=== PATIENT | female | born 1965 | race Caucasian/White ===

== ENCOUNTER 2024-11-09 09:52 | Inpatient (IN) | payer BC ==
[2024-11-09] MEDS ORDERED: Sodium Chloride 0.9% 10 ML Syringe FLUSH PRN ×2 (10:10→13:37)
[2024-11-09] MEDS ORDERED: Sodium Chloride 0.9% 2.5 ML Syringe FLUSH PRN ×2 (10:10→13:37)
[2024-11-09 10:28] LABS: HEMATOCRIT 50.9 % (37.0-47.0); HEMOGLOBIN 17.2 g/dL (12.0-16.0); MEAN CORPUSCULAR HEMOGLOBIN 28.2 pg (28.0-32.0); MEAN CORPUSCULAR HGB CONC 33.8 g/dL (32.0-36.0); MEAN CORPUSCULAR VOLUME 83.3 fL (83.0-99.0); MEAN PLATELET VOLUME 10.3 fL (9.4-12.3); PLATELET COUNT,PLT 370 K/uL (150-400); RED BLOOD CELL COUNT 6.11 M/uL (4.10-5.30); WHITE BLOOD CELL COUNT,WBC 18.79 K/uL (3.9-11.3)
[2024-11-09 10:40] LABS: INR 1.27 (0.86-1.11)
[2024-11-09 11:08] LABS: A/G RATIO 0.5 (0.9-1.6); ALBUMIN 2.5 g/dL (3.4-5.0); BILIRUBIN TOTAL 0.9 mg/dL (0.2-1.0); CALCIUM 10.6 mg/dL (8.5-10.1); CARBON DIOXIDE,CO2 19.4 mmol/L (21.0-32.0); CREATININE 1.4 mg/dL (0.6-1.0); EST CRCL DRUG DOSING (CG) 34.22 mL/min; POTASSIUM,K 4.4 mmol/L (3.5-5.1); PROTEIN TOTAL,TP 7.8 g/dL (6.4-8.2); TSH ULTRASENSITIVE 0.73 uIU/mL (0.36-3.74)
[2024-11-09 11:32] LABS: BAND PERCENT MAN 8 %; LYMPHOCYTES ABSOLUTE MAN 2.82 K/uL (1.00-4.80); LYMPHOCYTES PERCENT MAN 15 % (24-44); MONOCYTES ABSOLUTE MAN 1.69 K/uL (0.00-0.80); MONOCYTES PERCENT MAN 9 % (0-8); SEG NEUTROPHILS ABSOLUTE MAN 12.78 K/uL (1.80-7.70); SEG NEUTROPHILS PERCENT MAN 68 % (41-71)
[2024-11-09] MEDS: Diltiazem 25 MG/5 ML SDV IVPUSH ONE (11:41)
[2024-11-09] MEDS: Diltiazem 100 MG in Sodium Chloride 0.9% 100 ML IV SCH ×2 (11:41→19:11)
[2024-11-09 12:07] LABS: LACTIC ACID 1.6 mmol/L (0.4-2.0)
[2024-11-09] MEDS: cefTRIAXone 2 GM in Sodium Chloride 0.9% 50 ML IV ONE (12:10)
[2024-11-09] MEDS: Furosemide 40 MG/4 ML VIAL IVPUSH ONE (12:33)
[2024-11-09] MEDS: Sodium Chloride 0.9% 500 ML IV SCH (12:34)
[2024-11-09] MEDS: Azithromycin 500 MG in Sodium Chloride 0.9% 250 ML IV ONE (12:34)
[2024-11-09] MEDS ORDERED: Acetaminophen 325 MG Tab PO PRN (13:37)
[2024-11-09] MEDS ORDERED: Ondansetron 4 MG/2 ML SDV IVPUSH PRN (13:37)
[2024-11-09] MEDS ORDERED: Glucagon,Human Recombinant 1 MG Vial IM PRN (14:19)
[2024-11-09] MEDS ORDERED: 50% Dextrose in Water 50 ML Syringe IVPUSH PRN (14:19)
[2024-11-09] MEDS: Metoprolol Tartrate 50 MG Tab PO SCH (15:48)
[2024-11-09] MEDS: Sodium Chloride 0.9% 1,000 ML IV ONE (15:49)
[2024-11-09] MEDS ORDERED: Albuterol 8 GM Inhaler INH PRN (16:02)
[2024-11-09 16:15] LABS: CORONAVIRUS COVID-19 NAA NEGATIVE (NEGATIVE); INFLUENZA A NAA NEGATIVE (NEGATIVE); INFLUENZA B NAA NEGATIVE (NEGATIVE)
[2024-11-09] MEDS: Insulin Aspart 100 Units/ML 3 ML Pen SUBCUT SCH (17:06)
[2024-11-09 17:57] LABS: COLOR,URINE YELLOW
[2024-11-09 17:58] LABS: APPEARANCE,URINE HAZY; BILIRUBIN,URINE NEGATIVE (NEGATIVE); GLUCOSE,URINE 1000 mg/dL (NEGATIVE); KETONES,URINE LARGE mg/dL (NEGATIVE); LEUKOCYTE ESTERASE,URINE NEGATIVE (NEGATIVE); NITRITE,URINE NEGATIVE (NEGATIVE); OCCULT BLOOD,URINE NEGATIVE (NEGATIVE); PROTEIN,URINE NEGATIVE (NEGATIVE); UROBILINOGEN,URINE <2.0 EU/dL (<2.0)
[2024-11-09 18:05] LABS: BACTERIA,URINE RARE (NEGATIVE); EPITHELIAL CELLS,URINE NOT SEEN (NONE-FEW); MUCUS,URINE NOT SEEN (NONE-MOD); RBC,URINE 0-1 (0-2/HPF); WBC,URINE 0-1 (0-5/HPF)
[2024-11-09] MEDS: DULoxetine 60 MG Cap PO SCH (20:10)
[2024-11-09] MEDS: Sodium Chloride 0.9% 100 ML ONE (20:10)
[2024-11-09] MEDS: Rosuvastatin 10 MG Tab PO SCH (20:10)
[2024-11-09] MEDS: Aspirin 325 MG Tab PO SCH (20:12)
[2024-11-09] MEDS: Apixaban 5 MG Tab PO SCH (20:12)
[2024-11-09] MEDS: Fenofibrate,Micronized 67 MG Cap PO SCH (20:36)
[2024-11-10 06:52] LABS: HEMATOCRIT 50.5 % (37.0-47.0); HEMOGLOBIN 17.1 g/dL (12.0-16.0); MEAN CORPUSCULAR HEMOGLOBIN 28.2 pg (28.0-32.0); MEAN CORPUSCULAR HGB CONC 33.9 g/dL (32.0-36.0); MEAN CORPUSCULAR VOLUME 83.3 fL (83.0-99.0); PLATELET COUNT,PLT 335 K/uL (150-400); RED BLOOD CELL COUNT 6.06 M/uL (4.10-5.30); WHITE BLOOD CELL COUNT,WBC 18.17 K/uL (3.9-11.3)
[2024-11-10 07:10] LABS: CALCIUM 9.6 mg/dL (8.5-10.1); CARBON DIOXIDE,CO2 22.2 mmol/L (21.0-32.0); CREATININE 1.3 mg/dL (0.6-1.0); EST CRCL DRUG DOSING (CG) 36.53 mL/min; MAGNESIUM 1.8 mg/dL (1.8-2.4); POTASSIUM,K 3.9 mmol/L (3.5-5.1)
[2024-11-10 07:40] LABS: BAND ABSOLUTE MAN 1.82; BAND PERCENT MAN 10 %; EOSINOPHILS ABSOLUTE MAN 0.18 K/uL (0.00-0.45); EOSINOPHILS PERCENT MAN 1 % (0-6); LYMPHOCYTES PERCENT MAN 11 % (24-44); METAMYELOCYTE ABSOLUTE MAN 0.36; METAMYELOCYTE PERCENT MAN 2 %; MONOCYTES ABSOLUTE MAN 1.64 K/uL (0.00-0.80); MONOCYTES PERCENT MAN 9 % (0-8); MYELOCYTE ABSOLUTE MAN 0.36; MYELOCYTE PERCENT MAN 2 %; SEG NEUTROPHILS ABSOLUTE MAN 11.81 K/uL (1.80-7.70); SEG NEUTROPHILS PERCENT MAN 65 % (41-71)
[2024-11-10] MEDS: cefTRIAXone 2 GM in Sodium Chloride 0.9% 50 ML IV SCH (10:58)
[2024-11-10] MEDS: Sodium Chloride 0.9% 1,000 ML IV ONE (10:58)
[2024-11-10] MEDS: Azithromycin 500 MG in Sodium Chloride 0.9% 250 ML IV SCH (11:49)
[2024-11-10] MEDS: Magnesium Sulfate/Water Premix 2 GM in Premix Bag 1 BAG IV ONE (11:49)
[2024-11-10] MEDS: Potassium Chloride 20 MEQ Tab.ER PO ONE (11:49)
[2024-11-10] MEDS: DAPAGLIFLOZIN 10 MG PO SCH (12:00)
[2024-11-11 07:04] LABS: HEMATOCRIT 47.3 % (37.0-47.0); HEMOGLOBIN 16.1 g/dL (12.0-16.0); MEAN CORPUSCULAR HEMOGLOBIN 28.4 pg (28.0-32.0); MEAN CORPUSCULAR VOLUME 83.6 fL (83.0-99.0); PLATELET COUNT,PLT 258 K/uL (150-400); RED BLOOD CELL COUNT 5.66 M/uL (4.10-5.30)
[2024-11-11 07:29] LABS: CALCIUM 9.4 mg/dL (8.5-10.1); CARBON DIOXIDE,CO2 21.5 mmol/L (21.0-32.0); CREATININE 1.2 mg/dL (0.6-1.0); EST CRCL DRUG DOSING (CG) 39.58 mL/min; MAGNESIUM 1.9 mg/dL (1.8-2.4); POTASSIUM,K 4.3 mmol/L (3.5-5.1)
[2024-11-11 08:19] LABS: SEG NEUTROPHILS ABSOLUTE MAN 7.61 K/uL (1.80-7.70); SEG NEUTROPHILS PERCENT MAN 59 % (41-71)
[2024-11-11 08:20] LABS: BAND ABSOLUTE MAN 0.77; BAND PERCENT MAN 6 %; BLAST ABSOLUTE MAN 0.13; BLASTS PERCENT MAN 1 %; LYMPHOCYTES ABSOLUTE MAN 2.06 K/uL (1.00-4.80); LYMPHOCYTES PERCENT MAN 16 % (24-44); METAMYELOCYTE ABSOLUTE MAN 0.52; METAMYELOCYTE PERCENT MAN 4 %; MONOCYTES ABSOLUTE MAN 1.29 K/uL (0.00-0.80); MONOCYTES PERCENT MAN 10 % (0-8); MYELOCYTE ABSOLUTE MAN 0.52; MYELOCYTE PERCENT MAN 4 %
[2024-11-11] MEDS: Magnesium Sulfate/Water Premix 2 GM in Premix Bag 1 BAG IV ONE (09:50)
[2024-11-11] MEDS: Metoprolol Tartrate 25 MG Tab PO ONE (10:58)
[2024-11-11] MEDS ORDERED: Insulin Aspart 100 Units/ML 3 ML Pen SUBCUT SCH (11:30)
[2024-11-11] MEDS: Insulin Aspart 100 Units/ML 3 ML Pen SUBCUT SCH (17:07)
[2024-11-11] MEDS: Metoprolol Tartrate 50 MG Tab PO SCH (20:31)
[2024-11-12 05:53] LABS: HEMATOCRIT 47.2 % (37.0-47.0); HEMOGLOBIN 16.1 g/dL (12.0-16.0); MEAN CORPUSCULAR HEMOGLOBIN 28.5 pg (28.0-32.0); MEAN CORPUSCULAR HGB CONC 34.1 g/dL (32.0-36.0); MEAN CORPUSCULAR VOLUME 83.5 fL (83.0-99.0); MEAN PLATELET VOLUME 10.2 fL (9.4-12.3); PLATELET COUNT,PLT 219 K/uL (150-400); RED BLOOD CELL COUNT 5.65 M/uL (4.10-5.30); WHITE BLOOD CELL COUNT,WBC 10.39 K/uL (3.9-11.3)
[2024-11-12 06:15] LABS: A/G RATIO 0.5 (0.9-1.6); ALBUMIN 2.2 g/dL (3.4-5.0); BILIRUBIN TOTAL 0.4 mg/dL (0.2-1.0); CALCIUM 9.4 mg/dL (8.5-10.1); CARBON DIOXIDE,CO2 26.6 mmol/L (21.0-32.0); CREATININE 1.2 mg/dL (0.6-1.0); EST CRCL DRUG DOSING (CG) 39.58 mL/min; MAGNESIUM 1.7 mg/dL (1.8-2.4); POTASSIUM,K 3.9 mmol/L (3.5-5.1); PROTEIN TOTAL,TP 6.4 g/dL (6.4-8.2)
[2024-11-12 06:28] LABS: BAND ABSOLUTE MAN 0.42; BAND PERCENT MAN 4 %; EOSINOPHILS PERCENT MAN 1 % (0-6); LYMPHOCYTES ABSOLUTE MAN 2.18 K/uL (1.00-4.80); LYMPHOCYTES PERCENT MAN 21 % (24-44); METAMYELOCYTE ABSOLUTE MAN 0.21; METAMYELOCYTE PERCENT MAN 2 %; MONOCYTES ABSOLUTE MAN 1.25 K/uL (0.00-0.80); MONOCYTES PERCENT MAN 12 % (0-8); MYELOCYTE ABSOLUTE MAN 0.21; MYELOCYTE PERCENT MAN 2 %; SEG NEUTROPHILS ABSOLUTE MAN 6.03 K/uL (1.80-7.70); SEG NEUTROPHILS PERCENT MAN 58 % (41-71)
[2024-11-12] MEDS: Potassium Chloride 20 MEQ Tab.ER PO ONE (11:28)
[2024-11-12] MEDS: Magnesium Oxide 400 MG Tab PO ONE (11:28)
[2024-11-12 12:07] VITALS: PULSE 96
[2024-11-12 12:22] VITALS: BP 147/86
== END 2024-11-12 13:16 | disposition home or self-care (01) | DRG 139 ==
LOC: MW.ED 09:52 → MW.ICU 12:43 → MW.MS 11-11 17:39
PROVIDERS: ADMIT Family Medicine; ATTEND Family Medicine
DX: J18.9 Pneumonia, unspecified organism (principal); I48.20 Chronic atrial fibrillation, unspecified; I11.0 Hypertensive heart disease with heart failure; I50.9 Heart failure, unspecified; E11.51 Type 2 diabetes mellitus with diabetic peripheral angiopathy without gangrene; F17.210 Nicotine dependence, cigarettes, uncomplicated; E86.0 Dehydration; F12.90 Cannabis use, unspecified, uncomplicated; D72.829 Elevated white blood cell count, unspecified; K21.9 Gastro-esophageal reflux disease without esophagitis; E78.00 Pure hypercholesterolemia, unspecified; Z79.01 Long term (current) use of anticoagulants; Z98.890 Other specified postprocedural states; Z88.8 Allergy status to other drugs, medicaments and biological substances; Z79.82 Long term (current) use of aspirin; Z79.4 Long term (current) use of insulin; Z79.899 Other long term (current) drug therapy; Z79.51 Long term (current) use of inhaled steroids; Z79.2 Long term (current) use of antibiotics; Z90.49 Acquired absence of other specified parts of digestive tract; Z98.891 History of uterine scar from previous surgery; Z90.710 Acquired absence of both cervix and uterus; Z98.51 Tubal ligation status; Z89.429 Acquired absence of other toe(s), unspecified side
CPT/HCPCS: 0240U; 36415; 71045; 71045-26; 80048; 80053; 81001; 82947; 83605; 83735; 83880; 84443; 84484; 85025; 85610; 87040; 87428-QW; 87486; 87581; 87633; 93005; 93010; 93306; 96365; 96375; 99285-25; 99291; A9270-GY; J0456; J0696; J1815-GY; J1940; J3475; J3490; J7030; J7040; J7050